=== PATIENT | male | born 1970 ===

== ENCOUNTER 2016-12-15 20:49 | Emergency (ER) | payer OTHER ==
--- NOTE | ~2016-12-15 | ER ---
PATIENT'S NAME: [facility] AGE: 46 Y [address] ROOM: [place], [place] [address] LOCATION: [facility] ADMIT DATE: 12/15/2016 ER/Outpatient Report DISCHARGE DATE: 12/15/2016 FAMILY PHYSICIAN: PHYSICIAN, NO ATTENDING PHYSICIAN: Adonay Maria Time of Arrival: 2049 hours. Time of Evaluation: 2105 hours. CHIEF COMPLAINT: Cough, congestion, fatigue. HISTORY OF PRESENT ILLNESS: This is a 46-year-old male who presents to the ER. He states that he has not been feeling well for the past 60 days. He states he has had a cough, and it makes him feel short of breath at times. He states he has had a productive cough at times of yellowish phlegm. He states he has muscle aches, chills, fatigue. He does not know if he has been running any fevers at home. He states he has been evaluated by his primary care physician and as well as an Urgent Care and ER visit for this illness. The patient when he was evaluated by his primary care physician was found to have diabetes. He states he has been dealing with bilateral lower extremity neuropathy as well, in which he has been prescribed some pain medication for. He states that no one else at home is ill at this time, but states his boss has also had a cough as well. He denies any other problems. ALLERGIES: NO KNOWN ALLERGIES. MEDICATIONS: Please see medication list in nurse's notes. PAST MEDICAL HISTORY: Neuropathy, [id number] diabetes. PAST SURGICAL HISTORY: Appendectomy. SOCIAL HISTORY: He denies smoking, drug, or alcohol use. REVIEW OF SYSTEMS: All systems were reviewed and were negative with the exception of those discussed in the HPI. PATIENT'S NAME: [facility] AGE: 46 Y [address] ROOM: [place], [place] [address] LOCATION: [facility] ADMIT DATE: 12/15/2016 ER/Outpatient Report DISCHARGE DATE: 12/15/2016 FAMILY PHYSICIAN: PHYSICIAN, NO ATTENDING PHYSICIAN: Adonay Maria PHYSICAL EXAMINATION: VITAL SIGNS: Height 5 feet 8 inches stated, weight 70.3 kg taken, blood pressure is 122/84, pulse 94, respirations 16, temperature 98.5 degrees tympanically, and saturations 96% on room air. [place] Coma Score is 15. GENERAL: An alert, calm, well-developed male, in no acute distress. HEENT: Head: Normocephalic. Eyes: Pupils are equal and reactive to light. Ears: TMs display good light reflexes bilaterally. He does display moist mucous membranes. NECK: Supple. No lymphadenopathy. LUNGS: Clear to auscultation bilaterally. HEART: Regular rate and rhythm. EXTREMITIES: No clubbing or cyanosis. He does have full range of motion of all limbs. SKIN: Warm, dry, and intact. LABORATORY DATA AND X-RAYS: CBC: White count is 8.1, hemoglobin is 13.9, platelets 244, ANC is 5.1. Sedimentation rate is 12. CMS: Glucose is 135, otherwise unremarkable. CRP is less than 0.29. TSH is 1.620. [place] was negative. Accu-Chek is 127. Chest x-ray was negative for any infiltrate. IMPRESSION: 1. Bronchitis. 2. [id number] diabetes with bilateral lower extremity neuropathy. ASSESSMENT AND PLAN: The patient did rest comfortably here the entire stay. Since his illness has been going on for so long, I am going to the cover him with a Z-Toni to use as directed as well as give him some Phenergan with codeine cough syrup to use at night. Advised him to continue to push fluids. He needs to monitor his symptoms, and I would like him to follow up with his primary care physician this next week in [place] with his family doctor. The patient understands and agrees with care. MACRINA SEALS PA-C FOR MD WOLF PUENTE/dianna /[id number] d: t: 12/24/16 1623, OUTPATIENT REPORT
[2016-12-15 21:48] LABS: BASOPHIL % 0.4 %; EOSINOPHIL % 0.4 %; HEMOGLOBIN 13.9 g/dL (12.0-17.0); IMMATURE GRANULOCYTE % 0.2 %; LYMPHOCYTE # 2.5 K/uL (0.8-4.0); LYMPHOCYTE % 30.3 %; MCH 31.2 pg (27.0-34.0); MCHC 34.8 gm/dL (32.0-36.5); MCV 89.7 fl (83.0-98.0); MONOCYTE # 0.5 K/uL (0.0-1.0); MONOCYTE % 6.3 %; MPV 11.3 fl (9.4-12.4); NEUTROPHIL # (ANC) 5.1 K/uL (1.4-9.0); NEUTROPHIL % 62.4 %; NRBC % 0 /100WBC (0-0.00); PLATELET COUNT 244 K/uL (150-450); RBC 4.46 M/uL (4.00-6.00); WBC 8.1 K/uL (4.0-11.0)
[2016-12-15 22:08] LABS: ALK PHOS 64 IU/L (33-138); ALT 17 IU/L (12-78); ANION GAP 12.7 (10.0-19.0); AST 10 IU/L (10-40); BLOOD UREA NITROGEN 10 mg/dL (6-24); CALCIUM 8.7 mg/dL (8.5-10.5); CHLORIDE 102 mMol/L (96-110); CO2 27 mMol/L (22-32); CREATININE 0.7 mg/dL (0.6-1.3); ESTIMATED GFR (MDRD EQUATION) > 60; POTASSIUM 3.7 mMol/L (3.7-5.1); SODIUM 138 mMol/L (135-145); TOTAL BILIRUBIN 0.6 mg/dL (0.0-1.5); TOTAL PROTEIN 7.4 g/dL (6.0-8.4)
== END 2016-12-15 23:43 | disposition disaster alternative care site (69) ==
LOC: GMED 20:49
PROVIDERS: Physician Assistant Medical
DX: J40 Bronchitis, not specified as acute or chronic (principal); E11.40 Type 2 diabetes mellitus with diabetic neuropathy, unspecified; Z79.84 Long term (current) use of oral hypoglycemic drugs; Z90.49 Acquired absence of other specified parts of digestive tract